=== PATIENT | male | born 1980 | race Caucasian/White ===

== ENCOUNTER 2024-02-09 14:56 | Inpatient (IN) | payer OTHER, SELFPAY ==
[2024-02-09 16:05] LABS: #Basophils 0.06 10x3/uL (0.0-0.2); #Eosinphils 0.01 10x3/uL (0.0-0.5); #Monocytes 1.71 10x3/uL (0.0-1.1); #Neutrophils 8.24 10x3/uL (1.5-8.4); %Basophils 0.5 % (0.0-2.0); %Eosinophils 0.1 % (0.0-6.0); %Lymphocytes 8.9 % (18.0-47.0); %Monocytes 15.4 % (0.0-10.0); %Neutrophils 74.5 % (40.0-75.0); Hematocrit 40.5 % (38.8-50.0); Hemoglobin 13.7 g/dL (13.5-17.5); Mean Corpuscular HGB CONC 33.8 g/dL (32.0-36.0); Mean Corpuscular Hemoglobin 32.3 pg (27.0-33.0); Mean Corpuscular Volume 95.5 fL (81.2-95.1); Mean Platelet Volume 10.2 fL (7.4-10.4); Platelet Count 208 10x3/uL (150-450); RBC Distribution Width 12.7 % (11.5-14.5); Red Blood Cell (RBC) Count 4.24 10x6/uL (4.32-5.72); White Blood Cell (WBC) Count 11.1 10x3/uL (3.5-10.5)
[2024-02-09 16:14] LABS: Acetaminophen Less than 10 mcg/mL (Less than 10); Alcohol Less than 10.0 mg/dL (Less than 10); Salicylate Less than 8.0 mg/dL (Less than 8.0); Troponin I 0.075 ng/mL (< 0.028)
[2024-02-09 16:15] LABS: ALT (SGPT) 64 U/L (8-55); AST (SGOT) 48 U/L (5-34); Alkaline Phosphatase 82 U/L (40-110); Anion Gap 15 mmol/L (10-20); BUN (Urea Nitrogen) 11 mg/dL (8.9-20.6); Bilirubin, Total 0.9 mg/dL (0.2-1.2); CK (CPK) 92 U/L (30-200); Calc. Creatinine Clearance 0 mL/min (70-130); Calcium 9.2 mg/dL (7.8-10.44); Carbon Dioxide 22 mmol/L (22-29); Chloride 107 mmol/L (98-107); Estimated GFR 43; Globulin 4.1 g/dL (2.4-3.5); Glucose 105 mg/dL (70-105); Potassium 3.6 mmol/L (3.5-5.1); Protein, Total 8.1 g/dL (6.0-8.3); Sodium 140 mmol/L (136-145)
[2024-02-09 16:31] LABS: Amphetamine Not Detected (NotDetected); Barbiturates Screen Detected (NotDetected); Benzodiazepine Screen Detected (NotDetected); Cocaine Metabolite Screen Not Detected (NotDetected); Methadone Not Detected (NotDetected); Methamphetamine Not Detected (NotDetected); Opiate Screen Not Detected (NotDetected); Oxycodone Screen Not Detected (NotDetected); Phencyclidine (PCP) Not Detected (NotDetected); THC/Cannabinoid Screen Not Detected (NotDetected); Tricyclic Screen Detected (NotDetected)
[2024-02-09] MEDS ORDERED: Ondansetron PF 4 MG/2 ML Vial IVP PRN (17:37)
[2024-02-09 19:39] LABS: Troponin I 0.045 ng/mL (< 0.028)
[2024-02-09 20:53] LABS: Bilirubin Neg (Negative); Blood, Urine Negative (Negative); Clarity Clear (Clear); Glucose, Urine (Dipstick) Normal (Negative); Ketone, Urine Negative (Negative); Leukocyte Negative (Negative); Nitrite Negative (Negative); Protein, Urine (Dipstick) 30 mg/dl (Neg-Trace)
[2024-02-09 21:33] LABS: Bacteria/HPF None Seen HPF (None Seen); CAUTI Indications for Culture Alt mental st,lethar; Mucous/LPF 1+ LPF (<2+); RBC/HPF 0-3 HPF (0-3); Squamous Epithelial 0-3 HPF (0-3); WBC/HPF 0-3 HPF (0-3)
[2024-02-09 21:34] LABS: Urine Culture Reflex No No
[2024-02-09 21:49] VITALS: BMI 27.6
[2024-02-09] MEDS: Sodium Chloride 0.9% 1,000 ML IV SCH (22:30)
[2024-02-09 22:56] LABS: Troponin I 0.026 ng/mL (< 0.028)
[2024-02-10] MEDS ORDERED: Acetaminophen 325 MG TAB ONE
[2024-02-10] MEDS: Acetaminophen 325 MG TAB PO SCH (00:06)
[2024-02-10] MEDS ORDERED: Clindamycin 150 MG CAP ONE (01:51)
[2024-02-10] MEDS ORDERED: Ibuprofen 200 MG TAB ONE (01:52)
[2024-02-10] MEDS ORDERED: Lorazepam 1 MG TAB ONE (01:53)
[2024-02-10] MEDS ORDERED: QUEtiapine 25 MG TAB ONE (01:55)
[2024-02-10] MEDS ORDERED: Ventolin HFA Inhaler 60 PUFF INHALER ONE (01:57)
[2024-02-10] MEDS: Ventolin HFA Inhaler 60 PUFF INHALER INH PRN (02:03)
[2024-02-10] MEDS: Clindamycin 150 MG CAP PO SCH (02:05)
[2024-02-10] MEDS: dilTIAZem 30 MG TAB PO SCH (02:06)
[2024-02-10] MEDS: Ibuprofen 800 MG TAB PO SCH (02:07)
[2024-02-10] MEDS: Lorazepam 1 MG TAB PO SCH ×3 (02:09→10:34)
[2024-02-10] MEDS: QUEtiapine 100 MG TAB PO SCH ×3 (02:10→10:30)
[2024-02-10] MEDS: Famotidine 40 MG/5 ML Oral Suspension PO SCH (02:12)
[2024-02-10] MEDS: Montelukast Sodium 10 mg Tablet PO SCH (02:15)
[2024-02-10] MEDS: Pantoprazole DR 40 MG TAB PO SCH (02:15)
[2024-02-10] MEDS ORDERED: traZODone HCl 50 MG TAB ONE (02:35)
[2024-02-10] MEDS: Losartan 25 MG TAB PO SCH (02:41)
[2024-02-10] MEDS: traZODone HCl 50 MG TAB PO SCH (02:41)
[2024-02-10] MEDS ORDERED: Haloperidol Lactate 5 MG/ML VIAL ONE (06:43)
[2024-02-10] MEDS: Haloperidol Lactate 5 MG/ML VIAL IM SCH (07:03)
[2024-02-10] MEDS: chlordiazePOXIDE HCl 25 MG CAP PO SCH (07:05)
[2024-02-10] MEDS ORDERED: Lorazepam 2 MG/ML VIAL ONE ×3 (07:11→09:32)
[2024-02-10] MEDS ORDERED: chlordiazePOXIDE HCl 25 MG CAP ONE (07:12)
[2024-02-10] MEDS ORDERED: QUEtiapine 100 MG TAB PO SCH (09:00)
[2024-02-10] MEDS ORDERED: Electrolyte Replacement Protocol 1 EACH FS SCH (09:15)
[2024-02-10] MEDS ORDERED: Ondansetron ODT 4 MG TAB PO PRN (09:15)
[2024-02-10] MEDS ORDERED: Multivit, Therapeutic 1 TAB PO SCH (09:30)
[2024-02-10] MEDS: Lorazepam 2 MG/ML VIAL SLOW IVP SCH (09:40)
[2024-02-10 09:43] LABS: #Basophils 0.05 10x3/uL (0.0-0.2); #Eosinphils 0.01 10x3/uL (0.0-0.5); #Monocytes 1.39 10x3/uL (0.0-1.1); #Neutrophils 8.57 10x3/uL (1.5-8.4); %Basophils 0.4 % (0.0-2.0); %Eosinophils 0.1 % (0.0-6.0); %Lymphocytes 11.1 % (18.0-47.0); %Monocytes 12.3 % (0.0-10.0); %Neutrophils 75.8 % (40.0-75.0); Hematocrit 38.5 % (38.8-50.0); Hemoglobin 12.9 g/dL (13.5-17.5); Mean Corpuscular HGB CONC 33.5 g/dL (32.0-36.0); Mean Corpuscular Hemoglobin 31.9 pg (27.0-33.0); Mean Corpuscular Volume 95.3 fL (81.2-95.1); Mean Platelet Volume 10.2 fL (7.4-10.4); Platelet Count 181 10x3/uL (150-450); RBC Distribution Width 12.6 % (11.5-14.5); Red Blood Cell (RBC) Count 4.04 10x6/uL (4.32-5.72); White Blood Cell (WBC) Count 11.3 10x3/uL (3.5-10.5)
[2024-02-10] MEDS ORDERED: Magnesium 2 GM/50 ML(in water) 2 GM in Premix 1 BAG IVPB SCH (09:45)
[2024-02-10] MEDS: Multivitamins, Adult 10 ML, Folic Acid 1 MG, Thiamine HCl 100 MG, Admixture Fee 1 EACH ... IV SCH (09:50)
[2024-02-10 09:57] LABS: ALT (SGPT) 68 U/L (8-55); AST (SGOT) 52 U/L (5-34); Albumin 3.9 g/dL (3.5-5.0); Alkaline Phosphatase 77 U/L (40-110); Anion Gap 15 mmol/L (10-20); BUN (Urea Nitrogen) 11 mg/dL (8.9-20.6); Bilirubin, Direct 0.4 mg/dL (0.1-0.3); Bilirubin, Total 0.8 mg/dL (0.2-1.2); Calc. Creatinine Clearance 108 mL/min (70-130); Calcium 9.4 mg/dL (7.8-10.44); Carbon Dioxide 23 mmol/L (22-29); Chloride 105 mmol/L (98-107); Estimated GFR 93; Globulin 4.2 g/dL (2.4-3.5); Glucose 105 mg/dL (70-105); Magnesium 2.1 mg/dL (1.6-2.6); Phosphorus 3.6 mg/dL (2.3-4.7); Potassium 3.4 mmol/L (3.5-5.1); Protein, Total 8.1 g/dL (6.0-8.3); Sodium 140 mmol/L (136-145)
[2024-02-10] MEDS: Thiamine HCl 200 MG/2 ML VIAL SLOW IVP SCH (10:33)
[2024-02-10] MEDS: Potassium Chloride 20 MEQ TAB PO SCH (12:40)
[2024-02-10] MEDS: Lorazepam 1 MG TAB PO PRN (15:00)
[2024-02-10] MEDS: traZODone HCl 150 MG TAB PO SCH (20:59)
[2024-02-10] MEDS: Losartan 50 MG TAB PO SCH (20:59)
[2024-02-11] MEDS ORDERED: D5 NS w/ 40 mEq KCl 1,000 ML IV SCH (08:30)
[2024-02-11] MEDS ORDERED: Lorazepam 1 MG TAB PO PRN (09:16)
[2024-02-11] MEDS: Potassium Chloride 20 MEQ TAB PO SCH (09:45)
[2024-02-11] MEDS ORDERED: hydrALAZINE 20 MG/ML VIAL SLOW IVP PRN (09:46)
[2024-02-11] MEDS ORDERED: Ventolin HFA Inhaler 60 PUFF INHALER INH PRN (10:25)
[2024-02-11] MEDS ORDERED: Loratadine 10 MG TAB PO PRN (11:02)
[2024-02-11] MEDS: Melatonin 3 MG TAB PO PRN (21:11)
[2024-02-11] MEDS: Famotidine 20 MG TAB PO SCH (21:12)
[2024-02-11] MEDS: Montelukast Sodium 10 mg Tablet PO SCH (21:12)
[2024-02-12] MEDS: Ziprasidone 20 MG VIAL IM SCH ×2 (03:24→04:34)
[2024-02-12] MEDS ORDERED: Sterile Water 10 ML VIAL FS PRN (03:30)
[2024-02-12 03:59] LABS: #Basophils 0.07 10x3/uL (0.0-0.2); #Eosinphils 0.13 10x3/uL (0.0-0.5); #Monocytes 0.99 10x3/uL (0.0-1.1); #Neutrophils 6.37 10x3/uL (1.5-8.4); %Basophils 0.8 % (0.0-2.0); %Eosinophils 1.4 % (0.0-6.0); %Lymphocytes 17.5 % (18.0-47.0); %Monocytes 10.8 % (0.0-10.0); %Neutrophils 69.3 % (40.0-75.0); Hematocrit 38.2 % (38.8-50.0); Hemoglobin 13.1 g/dL (13.5-17.5); Mean Corpuscular HGB CONC 34.3 g/dL (32.0-36.0); Mean Corpuscular Hemoglobin 32.3 pg (27.0-33.0); Mean Corpuscular Volume 94.3 fL (81.2-95.1); Mean Platelet Volume 10.1 fL (7.4-10.4); Platelet Count 198 10x3/uL (150-450); RBC Distribution Width 12.3 % (11.5-14.5); Red Blood Cell (RBC) Count 4.05 10x6/uL (4.32-5.72); White Blood Cell (WBC) Count 9.2 10x3/uL (3.5-10.5)
[2024-02-12 04:16] LABS: ALT (SGPT) 59 U/L (8-55); AST (SGOT) 59 U/L (5-34); Albumin 3.8 g/dL (3.5-5.0); Alkaline Phosphatase 71 U/L (40-110); Anion Gap 16 mmol/L (10-20); BUN (Urea Nitrogen) 7 mg/dL (8.9-20.6); Bilirubin, Total 0.9 mg/dL (0.2-1.2); Calc. Creatinine Clearance 127 mL/min (70-130); Calcium 9.1 mg/dL (7.8-10.44); Carbon Dioxide 21 mmol/L (22-29); Chloride 109 mmol/L (98-107); Estimated GFR 110; Globulin 3.9 g/dL (2.4-3.5); Glucose 72 mg/dL (70-105); Potassium 3.5 mmol/L (3.5-5.1); Protein, Total 7.7 g/dL (6.0-8.3); Sodium 142 mmol/L (136-145)
[2024-02-12] MEDS: Magnesium 2 GM/50 ML(in water) 2 GM in Premix 1 BAG IVPB SCH (09:30)
[2024-02-12] MEDS: Lorazepam 0.5 MG TAB PO SCH (09:34)
[2024-02-12] MEDS: Potassium Chloride 20 MEQ TAB PO SCH (09:35)
[2024-02-12 11:20] VITALS: BMI 26.4
[2024-02-12] MEDS: cloNIDine 0.1mg/24 Hour PATCH TD SCH (11:35)
[2024-02-12] MEDS: Lorazepam 1 MG TAB PO PRN (18:50)
[2024-02-12] MEDS: Nicotine 21 MG PATCH TD PRN (18:58)
[2024-02-13] MEDS: Lorazepam 2 MG/ML VIAL IM PRN (02:59)
[2024-02-13] MEDS ORDERED: Lorazepam 0.5 MG TAB PO PRN (09:16)
[2024-02-13] MEDS: D5 0.9% NS w/ 20 mEq KCl 1,000 ML IV SCH (09:41)
[2024-02-13] MEDS: Thiamine 100 MG TAB PO SCH (12:33)
[2024-02-13] MEDS: Folic Acid 1 MG TAB PO SCH (12:34)
[2024-02-13] MEDS: Multivit, Therapeutic 1 TAB PO SCH (16:34)
[2024-02-14] MEDS: traMADol HCl 50 MG TAB PO SCH (06:31)
[2024-02-14] MEDS: Lidocaine 4% Patch TD SCH (09:42)
[2024-02-14 19:51] LABS: Bilirubin Neg (Negative); Blood, Urine Negative (Negative); Clarity Clear (Clear); Glucose, Urine (Dipstick) Normal (Negative); Ketone, Urine 5 mg/dL (Negative); Leukocyte Negative (Negative); Nitrite Negative (Negative); Protein, Urine (Dipstick) Negative (Neg-Trace); Specific Gravity, Urine 1.015 (1.005-1.030); Urobilinogen Normal mg/dL (Less than 2)
[2024-02-14] MEDS: LIDOCAINE Patch Removal TOP SCH (21:10)
[2024-02-15] MEDS: Clindamycin/D5W 900 MG in Premix 1 BAG IVPB SCH (09:43)
[2024-02-15] MEDS: Ketorolac Tromethamine 30 MG (1 mL) VIAL IVP SCH (09:45)
[2024-02-15 10:08] LABS: ALT (SGPT) 53 U/L (8-55); AST (SGOT) 46 U/L (5-34); Albumin 2.9 g/dL (3.5-5.0); Alkaline Phosphatase 82 U/L (40-110); Anion Gap 17 mmol/L (10-20); BUN (Urea Nitrogen) Less than 4 mg/dL (8.9-20.6); Bilirubin, Total 0.7 mg/dL (0.2-1.2); Calc. Creatinine Clearance 130 mL/min (70-130); Calcium 9.1 mg/dL (7.8-10.44); Carbon Dioxide 19 mmol/L (22-29); Chloride 105 mmol/L (98-107); Estimated GFR 111; Globulin 4.5 g/dL (2.4-3.5); Glucose 130 mg/dL (70-105); Potassium 3.8 mmol/L (3.5-5.1); Protein, Total 7.4 g/dL (6.0-8.3); Sodium 137 mmol/L (136-145)
[2024-02-15] MEDS ORDERED: Lorazepam 2 MG/ML VIAL SLOW IVP PRN (11:11)
[2024-02-15] MEDS: clonazePAM 1 MG TAB PO PRN (11:22)
[2024-02-15] MEDS ORDERED: Lorazepam 2 MG/ML VIAL SLOW IVP SCH (11:30)
[2024-02-15] MEDS: methylPREDNISolone Sod Succ 40 MG VIAL IVP SCH (12:12)
[2024-02-15 12:20] LABS: Influenza A by NAA Not Detected (NotDetected); Influenza B by NAA Not Detected (NotDetected); SARS-CoV-2 NAA Rapid Test Not Detected (NotDetected)
[2024-02-15 14:40] LABS: Uric Acid 5.8 mg/dL (3.5-7.2)
[2024-02-15] MEDS ORDERED: Ketorolac Tromethamine 30 MG (1 mL) VIAL IVP PRN (15:00)
[2024-02-15 16:51] VITALS: BP 123/78; TEMP 99.4
[2024-02-15] MEDS ORDERED: methylPREDNISolone Sod Succ 40 MG VIAL IVP SCH (21:00)
== END 2024-02-15 19:10 | disposition home or self-care (01) | DRG 896 ==
LOC: CSHERS 14:56 → CSHERHOLD 17:34 → OBSVTOIN 02-10 09:14 → CSHTELE 02-10 12:14
PROVIDERS: ADMIT Family Medicine; ATTEND Family Medicine
DX: F10.231 Alcohol dependence with withdrawal delirium (principal); G92.8 Other toxic encephalopathy; N17.9 Acute kidney failure, unspecified; I24.89 Other forms of acute ischemic heart disease; L03.113 Cellulitis of right upper limb; T50.905A Adverse effect of unspecified drugs, medicaments and biological substances, initial encounter; E87.6 Hypokalemia; E86.9 Volume depletion, unspecified; I10 Essential (primary) hypertension; Z98.890 Other specified postprocedural states; Z79.899 Other long term (current) drug therapy
CPT/HCPCS: 36415; 36416; 70450; 71045; 80053; 80306; 80307; 81001; 81003; 82140; 82248; 82550; 83735; 84100; 84132; 84443; 84484; 84550; 85025; 86140; 87040; 93005; 93306; 94664; 96372; J1630; J1885; J2060; J2919; J3411; J3475; J3480; J3486; J3490; J7030; J7042